=== PATIENT | female | born 1980 | race Caucasian/White ===

== ENCOUNTER 2017-07-09 22:50 | Emergency (ER) | payer OTHER ==
[~2017-07-09] VITALS: Ht 154.9 cm; Wt 110.0 kg
[2017-07-09 22:53] VITALS: BP 164/90; PULSE 103; RESP 18; TEMP 98.8; O2SAT 100
[2017-07-10] MEDS ORDERED: OXYMETAZOLINE HCL 0.05% 15 ML NASAL SPRAY NASAL ONE (00:45)
[2017-07-10] MEDS ORDERED: PSEUDOEPHEDRINE HCL 30 MG TAB PO ONE (00:45)
--- NOTE | 2017-07-10 00:52 | PD ---
HPI Chief Complaint: Cold / Flu Symptoms Time Seen by Provider: 00:12 Travel History International Travel<30 days: No Contact w/Intl Traveler<30days: No Traveled to known affect area: No History of Present Illness HPI Patient comes in complaining of facial pressure that began on Saturday. Patient states she was on Bactrim and steroids for a cellulitis her lower extremity and is not certain if this might be related or not. Patient states that she went and saw her primary care doctor on Saturday who recommended she stop taking both steroid and Bactrim. Patient states when she woke today she felt slightly worse now having a sore throat and feels pressure moving into her head. Patient denies doing anything for this. Denies anything making it better or worse. Denies any fevers, vomiting, abdominal pain, chest pain, shortness of breath, back pain, diarrhea, neck pain, or any known sick contacts. Patient states she was seen in another ER earlier was told there is nothing to do and decided to come here for second opinion. [facility] Past Medical History Medical History: Denies Significant Hx Diminished Hearing: No Immunizations Current: No ?: Not LMP: 06/22/17 Past Surgical History Section: Yes Social History Alcohol Use: No Tobacco Use: No Substance Use: No Allergies-Medications (Allergen,Severity, Reaction): Coded Allergies: sulfamethoxazole (Verified Adverse Reaction, Mild, Headache, 07/09/17) DEVELOPED HEADACHES AND SORE THROAT AFTER TAKING BACTRIM FOR 7 DAYS. REFUSES TO TAKE IT AGAIN trimethoprim (Verified Adverse Reaction, Mild, Headache, 07/09/17) DEVELOPED HEADACHES AND SORE THROAT AFTER TAKING BACTRIM FOR 7 DAYS. REFUSES TO TAKE IT AGAIN Review of Systems Except as stated in HPI: all other systems reviewed are Neg Physical Exam Narrative GENERAL: Well-developed, overly nourished, in no acute distress, and non-ill appearing. SKIN: Focused skin assessment warm and dry. HEAD: Atraumatic. Normocephalic. EYES: Pupils equal and round. EOMI. No scleral icterus. No injection or drainage. ENT: No nasal bleeding or discharge. Mucous membranes pink and moist. Tympanic membranes are pearly cuellar bilaterally. Posterior pharynx nonerythematous without exudate. Uvula is midline. Patient reports tenderness to palpation over all facial sinuses. NECK: Trachea midline. No cervical lymphadenopathy. Supple. No nuclear rigidity. CARDIOVASCULAR: Regular rate and rhythm. No murmur appreciated. RESPIRATORY: No accessory muscle use. No respiratory distress. Clear to auscultation. Breath sounds equal bilaterally. MUSCULOSKELETAL: No obvious deformities. No clubbing. No cyanosis. No edema. Full range of motion. NEUROLOGICAL: Awake and alert. No obvious cranial nerve deficits. Motor grossly within normal limits. Normal speech. PSYCHIATRIC: Appropriate mood and affect; insight and judgment normal. Data Data Last Documented VS Vital Signs Date Time Temp Pulse Resp B/P (MAP) Pulse Ox O2 Delivery O2 Flow Rate FiO2 07/10/17 01:58 07/09/17 22:53 98.8 103 18 100 Orders Orders Influenzae A/B Antigen (07/09/17 23:59) Group A Rapid Strep Screen (07/10/17 00:20) Pseudoephedrine (Sudafed) (07/10/17 00:45) Oxymetazoline 0.05% Andrew Pitman (Afrin 0.0 (07/10/17 00:45) Strep Culture (Group A) (07/10/17 00:20) Ed Discharge Order (07/10/17 01:41) MDM Medical Decision Making Medical Screen Exam Complete: Yes Emergency Medical Condition: Yes Differential Diagnosis Strep pharyngitis, viral pharyngitis, upper respiratory infection, sinusitis, influenza, adverse reaction, other Narrative Course Patient in no obvious distress upon re-evaluation. All pertinent laboratory result(s) discussed with patient. Patient was offered a CT secondary to concerns over the pressure going into her head however patient has declined. Any questions/concerns in reference to patient diagnosis/condition discussed and clarified prior to patient's discharge. Reinforced sheer importance of close follow up with patient's primary physician or primary care clinic. Instructed patient to return to ED immediately, if symptoms return/worsen. Patient showed understanding of above instructions. Further instructions and recommendations were detailed in discharge paperwork. Patient ambulated without difficulty out of ED at discharge. Diagnosis Primary Impression: Sinus pressure Patient Instructions: Antihistamine/Decongestant (By mouth), General Instructions Additional Instructions: Follow-up with your primary care physician this week for reevaluation. Use over -the-counter decongestants as needed for symptomatic relief. Follow instructions on the packaging. Return to the emergency department if symptoms get worse. Disposition: 01 DISCHARGE HOME Condition: Stable Leonid Catalan Jul 10, 2017 00:52
== END 2017-07-10 02:02 | disposition home or self-care (01) ==
LOC: NEPK 22:50
DX: J32.9 Chronic sinusitis, unspecified (principal); J02.9 Acute pharyngitis, unspecified; Z88.2 Allergy status to sulfonamides; Z88.8 Allergy status to other drugs, medicaments and biological substances
CPT/HCPCS: 87081; 87804; 87880; 99283